=== PATIENT | male | born 1980 | race Caucasian/White ===

== ENCOUNTER 2017-03-28 20:39 | Emergency (ER) | payer OTHER ==
[2017-03-28 22:03] LABS: BASOPHIL % 0.5 % (0-2); PLATELET COUNT 242 x10^3mcL (130-400); RED CELL DISTRIBUTION WIDTH 14.1 % (11.5-14.5)
[2017-03-28 22:11] LABS: CARBON DIOXIDE 28.7 mmol/L (21-32); CHLORIDE SERUM 99 mmol/L (98-107); CREATININE SERUM 1.1 mg/dL (0.7-1.3); GFR1 > 60 mL/min; GLUCOSE SERUM 103 mg/dL (74-106); POTASSIUM SERUM 3.5 mmol/L (3.5-5.1); SODIUM SERUM 138 mmol/L (136-145)
[2017-03-28 22:17] LABS: ALBUMIN 3.8 g/dL (3.4-5.0); ALKALINE PHOSPHATASE 79 U/L (46-116); ALT/SGPT 32 U/L (16-63); AMYLASE 49 U/L (25-115); AST/SGOT 37 U/L (15-37); BILIRUBIN TOTAL 1.21 mg/dL (0.20-1.00); LIPASE 108 IU/L (73-393); TOTAL PROTEIN, SERUM 7.5 g/dL (6.4-8.2)
[2017-03-29 00:48] VITALS: BP 111/68
== END 2017-03-29 00:48 | disposition home or self-care (01) ==
LOC: ED 20:39
PROVIDERS: Emergency Medicine
DX: S06.0X9A Concussion with loss of consciousness of unspecified duration, initial encounter (principal); S01.112A Laceration without foreign body of left eyelid and periocular area, initial encounter; R11.10 Vomiting, unspecified; W01.0XXA Fall on same level from slipping, tripping and stumbling without subsequent striking against object, initial encounter; Y93.89 Activity, other specified; Y99.8 Other external cause status; Y92.89 Other specified places as the place of occurrence of the external cause
CPT/HCPCS: 83880; J1885; J2405